=== PATIENT | male | born 1985 | race African-American/Black ===

== ENCOUNTER 2021-02-05 10:18 | Emergency (ER) | payer MEDICAID, OTHER ==
[~2021-02-05] VITALS: Ht 188 cm; Wt 88.0 kg
[2021-02-05 11:10] VITALS: BP 116/70
== END 2021-02-05 11:12 ==
LOC: ER 10:36
DX: J45.909 Unspecified asthma, uncomplicated (principal)
CPT/HCPCS: 99283